=== PATIENT | female | born 2000 | race Hispanic/Latino ===

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

== ENCOUNTER 2020-04-25 18:34 | Emergency (ER) | payer MEDICAID, OTHER ==
[~2020-04-25 18:34] MED LIST: ACET1TAB12 PO; FERS325 PO
[2020-04-25] MEDS ORDERED: LIDOCAINE HCL 2% JELLY 5 ML ONE (18:41)
[2020-04-25] MEDS ORDERED: IBUPROFEN 400 MG TABLET ONE (19:44)
== END 2020-04-25 20:06 | disposition home or self-care (01) ==
LOC: EDH 18:34
DX: S91.201A Unspecified open wound of right great toe with damage to nail, initial encounter (principal); X58.XXXA Exposure to other specified factors, initial encounter; Y93.89 Activity, other specified; Y92.098 Other place in other non-institutional residence as the place of occurrence of the external cause; Y99.8 Other external cause status
CPT/HCPCS: 11730; 96374; 96375

== ENCOUNTER 2021-06-05 19:43 | Emergency (ER) | payer OTHER ==
[~2021-06-05] VITALS: Ht 152.4 cm; Wt 62.6 kg
[2021-06-05 21:19] VITALS: BP 130/67
[2021-06-05] MEDS ORDERED: IVER3TAB PO (21:38)
[2021-06-05] MEDS ORDERED: ALBUHFA IH (21:38)
[2021-06-05] MEDS ORDERED: FLUT1DIS IH (21:38)
[2021-06-05 22:14] VITALS: BP 124/68
== END 2021-06-05 22:14 | disposition home or self-care (01) ==
LOC: EDH 19:43
DX: U07.1 COVID-19 (principal); B34.9 Viral infection, unspecified
CPT/HCPCS: 71045; 81025; 87635; 87804 ×2; 99284; C9803